=== PATIENT | female | born 1985 | race Caucasian/White ===

== ENCOUNTER → 2018-06-21 16:45 | Outpatient (CLI) | payer MEDICAID, SELFPAY ==
[2018-06-24 09:05] LABS: HPV Reflexed? NOT INDICATED
== END ==
PROVIDERS: Visit Provider Obstetrics & Gynecology
DX: Z12.4 Encounter for screening for malignant neoplasm of cervix (principal)
CPT/HCPCS: 88175; G0145

== ENCOUNTER → 2018-07-18 17:42 | Outpatient (CLI) | payer MEDICAID, SELFPAY ==
--- NOTE | 2018-07-18 17:44 | CT_ITS ---
STUDY: CT ABDOMEN AND PELVIS WITH CONTRAST REASON FOR EXAM: Female, 32 years old. Palpable right lower quadrant mass RADIATION DOSAGE (If Supplied By Facility): CTDIvol = ( 11.7 ) mGy, DLP = ( 693.73 ) mGycm TECHNIQUE: Transaxial images were obtained from the dome of the diaphragm to the symphysis pubis without oral contrast. 100 ml of Isovue 300 contrast was administered. Sagittal and coronal images were reconstructed. Individualized dose optimization techniques were used for this CT. COMPARISON: None. FINDINGS: The lung bases are clear. The liver is normal. No dilated intrahepatic biliary radicles. The gallbladder is normal with no calcifications within it. There is no pericholecystic fluid collection or streakiness The spleen is normal. The pancreas is normal. Both adrenals are normal. The kidneys are normal with no masses, calculi or hydronephrosis A large food debris in the stomach There is no bowel distention, acute appendicitis or diverticulitis. No constricting lesions are seen in large bowel. A large fecal debris in the rectum A 3.5 cm hematoma in the right lower rectus abdominis muscle and a 1.7 cm hematoma involving the left inferior rectus abdominis muscle and the adjacent subcutaneous tissue. No ventral hernia. There is no ascites or any free intraperitoneal air. No indication of epiploic appendagitis The vascular structures in the retroperitoneum are normal. There is no retrocrural, retroperitoneal or mesenteric adenopathy. The bones and joints are normal. The urinary bladder is normal.--The uterus is normal. There is no inguinal or pelvic adenopathy. There is no inguinal hernia. CT/Abdomen/Pelvis WITH Contrast IMPRESSION: A 3.5 cm hematoma within the right rectus abdominis muscle in its inferior end. A similar but smaller area of hematoma at the same level is seen on the left side. This measures 1.7 cm and involves both the rectus abdominis muscle in the adjacent subcutaneous tissue. A large fecal burden in the rectum. No acute appendicitis or diverticulitis Electronically Signed: Jose Luis Miller MD at 4:27 EDT Tel , Service support ,
== END ==
PROVIDERS: Referring Provider Surgery; Visit Provider Surgery
DX: R19.00 Intra-abdominal and pelvic swelling, mass and lump, unspecified site (principal)
CPT/HCPCS: 74177; Q9967

== ENCOUNTER 2018-12-13 15:20 | Inpatient (IN) | payer MEDICAID, SELFPAY ==
[2018-11-02 09:51] VITALS: BMI 32.8
[2018-11-14 13:19] VITALS: BMI 32.8
--- NOTE | 2018-12-12 20:53 | HP.PCM_ITS ---
History and Physical Date of Admission: 12/13/18 HISTORY OF PRESENT ILLNESS 33 year old woman presents with painful masses in her lower anterior abdominal wall with increased painful symptomatology over the past year. She first noticed these painful masses after a in the past. The painful symptomatology is exacerbated during her menstrual cycle. Patient is sexually active. An ultrasound was done which showed two subcutaneous lesions in the lower abdominal wall area, measuring 3.7 cm and 2.[address] Abdomen and Pelvis was done on 07/18/18 which showed a 3.5 cm hematoma within the right rectus abdominis muscle in its inferior end. A similar but smaller area of hematoma at the same level is seen on the left side. This measures 1.7 cm and involves both the rectus abdominis muscle in the adjacent subcutaneous tissue. No ventral hernia. There is no ascites or any free intraperitoneal air. Dr. Mina has been consulted for excision of these painful masses in the rectus abdominis muscles. Since her symptomatology is exacerbated with her menstrual cycle, he thinks these masses may represent endometriomas. At the time of excision, an undetermined amount of rectus abdominis muscle may be removed leading to an abdominal wall defect. I was asked to evaluate this patient for surgical options for abdominal wall reconstruction. PAST MEDICAL HISTORY Nausea Abdominal pain Anxiety and depression Asthma PAST SURGICAL HISTORY tonsillectomy tubal ligation unilateral oophorectomy section ALLERGIES No Known Allergies MEDICATIONS None. FAMILY HISTORY Father - Heart disease, Hypertension, Diabetes SOCIAL HISTORY Smoking Status: Current every day smoker second hand exposure: Yes alcohol intake: current alcohol intake frequency: a few times a month substance use type: does not use REVIEW OF SYSTEMS General - Denies fever, fatigue, and weight loss. Eyes - Denies cataracts and glaucoma. ENT - Denies nasal congestion and sore throat. Endocrine - Denies excessive thirst and urination. Skin - Denies suspicious lesions and skin cancer. Musculoskeletal - Denies joint pain, joint stiffness, weakness of muscles and joints, back pain, and arthritis. Neuro - Denies headaches. Cardiovascular - Denies chest pain, fatigue, and shortness of breath with exertion. Psych - Denies anxiety and depression. Respiratory - Denies chronic cough and shortness of breath. Patient is a smoker. Gastrointestinal - Has nausea. Denies vomiting, diarrhea, and constipation. Hematologic - Denies abnormal bruising and bleeding. Genitourinary - Denies hematuria and urinary frequency. PHYSICAL EXAMINATION General - Alert and Oriented. HEENT - PERRL. EOMI. Throat is clear. Neck - Supple and nontender. No cervical adenopathy. Lungs - Clear to auscultation. Heart - Regular rate and rhythm. Abdomen - Soft and nondistended. Has a horizontal pubic scar. There are palpable soft tissue masses in the lower anterior abdominal wall. Tender to palpation. The larger one is in the right lower abdominal wall area. Measures about 4 cm. There is a smaller one in the left lower abdominal wall area. Measures about 2 cm. No abdominal wall defects palpated at this time. Extremities - FROM. No axillary adenopathy. Radial pulses are palpable. Neuro - CN II-XII grossly intact. Psych - Normal mood and affect. ASSESSMENT 1. 4 cm painful endometrioma right lower anterior abdominal wall in rectus abdominis muscle. 2. 2 cm painful endometrioma left lower anterior abdominal wall in rectus abdominis muscle. 3. Planned ventral hernia after excision endometriomas rectus abdominis muscles. 4. Late effect contusion abdominal wall. 5. Smoker. PLAN CT reviewed. Discussed with the patient that after excision of these painful endometriomas, there may an abdominal wall defect that will need reconstruction. Depending on how much muscle and fascia is excised, will plan on abdominal wall reconstruction using components separation technique with myofascial advancement flaps. The use of acellular dermal matrix graft will be used as well in the reconstruction. Additional regional myofascial flaps may be needed as well, namely the TFL flap and/or the rectus femoris flap. Depending on the complexity of the abdominal wall reconstruction, I anticipate at least an overnight stay in the hospital but more likely a 2-4 day stay may be needed. She will have drains in for several days and be maintained on antibiotics until the drains are removed. She will wear an abdominal binder for 6 months and be on a 10 lb lifting restriction as well. Will coordinate with Dr. Mina's office the timing of the surgery. Patient was informed of the risks and complications of the procedure including alternatives to surgery. These were discussed with the patient personally. Patient voices understanding and wishes to proceed. Some of the risks and complications were included in a form from the [employer]. Encouraged patient to stop smoking as it may have deleterious effects on wound healing.
[2018-12-13] VITALS (11 sets, daily range): BP systolic 91–123; BP diastolic 42–85; PULSE 55–83; RESP 14–16; TEMP 36.4–37.1; O2SAT 93–98; BMI 33.2
--- NOTE | 2018-12-13 | IMM_PTH ---
PATIENT: KRISTINA VERONICA LOC: MS3 U#:[id number] AGE/SX: 33/F ROOM: IA318 RE12/13/[address]: Dr. Jan Soler MD : 1985 BED: 1 DIS: 12/14/2018 SPEC #: [id number] RECD: 12/14/18 13:49 STATUS: NATAN REQ #: [id number] KAYLEEN: 12/13/18 00:[address]: Jan Soler DEPT: IMMUNOHISTOCHEMISTRY RECD BY: Cyndee Soto ENTERED: 12/14/18 13:53 SP TYPE: IMMUNO OTHR DR: No Primary Care Phys Tissues: B - Abdominal wall, NOS Procedures: BCL-2 (add) CD138 (add) CD20 (add) CD45 (add) CD5 (add) CD79A (add) MACRO (add) Pankeratin (add) CD3 (initial) PHYSICIAN & INSTITUTION [place] [address] SPECIMEN INFORMATION: Tissue Source: B - Right rectus abdominis with lymph node, biopsy Clinical Info: Ventral hernia without obstruction or gangrene, subcutaneous nodule Specimen Number: [id number] B3 CPT code: 97401, 14298 x8 METHODOLOGY: Deparaffinized sections of prefer/formalin-fixed tissue or PAP/DQ stained slides are incubated with monoclonal/polyclonal antibodies/oligonucleotide probes. Localization is made via biotin free immunoperoxidase method. Appropriate controls are performed and reacted as expected. Results on target cell population are indicated in the following table: RESULTS: ANTIBODY / CLONE RESULT Block B3 CD3 (PS1) positive CD5 (SP10) positive CD20 (L26) positive CD45 (RP2/18) positive CD79a (11E3) negative CD138 (B-A38) negative BCL-2 (bcl-2/100/D5) negative AE1-3 (AE1/AE3/PCK26) negative Macro (HAM-56) negative These tests were developed and their performance characteristics determined by [facility]. They may not have been cleared or approved by the U.S. Food and Drug Administration. The FDA has determined that such clearance or approval is not necessary. INTERPRETATION: B. Right rectus abdominis with lymph node, biopsy: Consistent with reactive lymphoid tissue. AM:arnold 12/15/18
[2018-12-13] MEDS: Cefazolin 2 GM in 0.9% Normal Saline 100 ML IV (09:42)
--- NOTE | 2018-12-13 10:28 | MISC_PTH ---
PATIENT: KRISTINA VERONICA LOC: MS3 U#:[id number] AGE/SX: 33/F ROOM: FL318 RE12/13/[address]: Dr. Jna Soler MD : 1985 BED: 1 DIS: 12/14/2018 SPEC #: [id number] RECD: 12/13/18 10:34 STATUS: NATAN RELars #: [id number] KAYLEEN: 12/13/18 10:[address]: Jan Soler DEPT: SURGICAL PATHOLOGY RECD BY: Lupillo Worrell ENTERED: 12/13/18 13:00 SP TYPE: MISC OTHR DR: Winter Primary Care Phys Tissues: A - Abdominal wall, NOS B - Abdominal wall, NOS C - Abdominal wall, NOS Procedures: Frozen Section (charge) Frozen Section Add'l ([facility]) Surgery Specimen Level IV HEADER OPERATION: Excision endometriomas, rectus abdominis PRE-OP DIAGNOSIS: Ventral hernia without obstruction or gangrene, subcutaneous nodule TISSUE SUBMITTED: A - Left rectus abdominis, FS at 1024, B - Right rectus abdominis and lymph node, FS at 1035, C - Additional tissue on right rectus abdominis, FS at 1043, D - Additional tissue on right rectus abdominis, sent for permanent FROZEN SECTION DIAGNOSIS A. Left rectus abdominis: Consistent with endometriosis. B. Right rectus abdominis with lymph node: Consistent with endometriosis. Lymph node, reactive lymphoid hyperplasia. C. Additional tissue on right: Negative for endometriosis. SJ:arnold 12/13/18 B & C. Case has been reviewed in consultation with Dr. aHrman who concurs with the above diagnosis. IDC:AM MICROSCOPIC DIAGNOSIS A. Left rectus abdominis, biopsy: Extensive endometriosis. B. Right rectus abdominis, biopsy: Extensive endometriosis. Lymph node tissue with reactive change. Skin with underlying soft tissue containing focal dystrophic ossification. See comment. C. Additional tissue, right rectus abdominis, biopsy: Benign skeletal muscle fragment. See comment. D. Additional tissue, right rectus abdominis, biopsy: Benign muscular and fibrofatty tissue. See comment. AM:arnold 12/14/18 COMMENT B. Immunohistochemistry ([id number]) supports the above diagnosis. C & D. There is no evidence of endometriosis or malignancy. MICROSCOPIC DESCRIPTION Slides are reviewed. GROSS DESCRIPTION A - Received fresh for frozen section diagnosis labeled with the patient's name is a specimen designated left rectus abdominis. The specimen consists of a nodular piece of christie soft tissue measuring 4 x 3.5 x 2.5 cm. The specimen is inked and serially sectioned and reveals focally fibrous cut surfaces. A section is submitted for frozen section diagnosis. Emergency Medical Service Coordinator sections are submitted in five cassettes as follows: 1 - frozen section, 2-5 - more account executive sales representative sections. / AM: 12/13/18 B - Received fresh for frozen section diagnosis labeled with the patient's name is a specimen designated right rectus abdominis and lymph node. The specimen consists of a nodular piece of soft tissue measuring 8 x 4 x 3 cm. A piece of lymph node is also noted measuring 1.2 cm in greatest dimension. Two frozen sections are done, one from the nodular piece and the second one from the half of the lymph node. Serial sections of the largest piece reveals christie fibrous cut surfaces and focal area of punctate hemorrhage. Emergency Medical Service Coordinator sections are submitted in six cassettes as follows: 1 - frozen section, larger piece of tissue, 2 - frozen section, lymph node, 3 - rest of the lymph node, 4-6 - more sections of larger piece of tissue. / AM: 12/13/18 C - Received fresh for frozen section diagnosis labeled with the patient's name is a specimen designated additional tissue on right. The specimen consists of a piece of christie soft tissue measuring 1.5 x 1 x 0.5 cm. The specimen is bisected and submitted entirely for frozen section diagnosis in one cassette. / AM: 12/13/18 D - Received in fixative is one container labeled with the patient's name and designated additional tissue right rectus abdominis. The specimen consists of a piece of pink congested soft tissue measuring 3 x 1 x 0.5 cm. The specimen is bisected and submitted entirely in one cassette. / MORGAN:arnold 12/13/18 TC:5 CPT: 18572 x4, 97071 x3, 31211
--- NOTE | 2018-12-13 11:12 | PCM.OPRPT ---
Problem List (1) Endometrioma Status: Chronic Comment: lower anterior abdominal wall in rectus muscles Report of Operation Date of Procedure: 12/13/18 Pre-Operative Diagnosis: Endometriomas of lower rectus abdominis muscle Post-Operative Diagnosis: Same Surgery/Procedure Performed:: Excision of intramuscular endometriomas x2 electrical prospecting observer: Jan Soler Type of Anesthesia:: General Anesthesiologist: Duane Velazco Specimen's removed: 2 endometriomas from lower rectus abdominis muscle Estimated Blood Loss (mL): < 25 cc Description of Procedure: Patient was brought into the operating room. Under excellent general trach intubation the abdomen was sterilely prepped draped in usual fashion. Local was injected into an old Pfannenstiel incision and this was opened up. Plasma blade was used come down to the endometrioma. I started on the left lower rectus remove this 1 getting circumferentially around it with the plasma blade he only had to take a small amount of the fascia and almost no muscle at all on the left side I sent it for frozen section and it came back as an endometrioma. I then went to the right side using the plasma blade I got all around this this significantly went into the rectus abdominis muscle and we sacrificed a significant amount of the anterior fascia as well as the inferior aspect of the muscle itself. We had a perforating vessel of the inferior epigastrics that was sacrificed and I tied them off with a [id number] sutures of 0 Vicryl. A few other smaller perforators were clipped with medium ligaclips. I sent the larger one off it to came back as an endometrioma. Once this was completed we had good hemostasis Dr. Soler came in to do his myofascial coverage. - Admit VTE Documentation VTE Present on Admission: No VTE Mechan Device Prophylaxis: SCD's VTE Pharm Prophylaxis ordered?: No Reason prophylaxis not ordered:: Treatment Not Indicated
--- NOTE | 2018-12-13 11:16 | OP.PCM_ITS ---
Problem List (1) Endometrioma Status: Chronic Comment: lower anterior abdominal wall in rectus muscles Report of Operation Date of Procedure: 12/13/18 Pre-Operative Diagnosis: Endometriomas of lower rectus abdominis muscle Post-Operative Diagnosis: Same Surgery/Procedure Performed:: Excision of intramuscular endometriomas x2 field scout: Jan Soler Type of Anesthesia:: General Anesthesiologist: Duane Velazco Specimen's removed: 2 endometriomas from lower rectus abdominis muscle Estimated Blood Loss (mL): < 25 cc Description of Procedure: Patient was brought into the operating room. Under excellent general trach intubation the abdomen was sterilely prepped draped in usual fashion. Local was injected into an old Pfannenstiel incision and this was opened up. Plasma blade was used come down to the endometrioma. I started on the left lower rectus remove this 1 getting circumferentially around it with the plasma blade he only had to take a small amount of the fascia and almost no muscle at all on the left side I sent it for frozen section and it came back as an endometrioma. I then went to the right side using the plasma blade I got all around this this significantly went into the rectus abdominis muscle and we sacrificed a significant amount of the anterior fascia as well as the inferior aspect of the muscle itself. We had a perforating vessel of the inferior epigastrics that was sacrificed and I tied them off with a [id number] sutures of 0 Vicryl. A few other smaller perforators were clipped with medium ligaclips. I sent the larger one off it to came back as an endometrioma. Once this was completed we had good hemostasis Dr. Soler came in to do his myofascial coverage. - Admit VTE Documentation VTE Present on Admission: No VTE Mechan Device Prophylaxis: SCD's VTE Pharm Prophylaxis ordered?: No Reason prophylaxis not ordered:: Treatment Not Indicated
--- NOTE | 2018-12-13 13:14 | OP.PCM_ITS ---
Report of Operation Date of Procedure: 12/13/18 Pre-Operative Diagnosis: 1. 4 cm painful endometrioma right lower anterior abdominal wall in rectus abdominis muscle. 2. 2 cm painful endometrioma left lower anterior abdominal wall in rectus abdominis muscle. 3. Planned ventral hernia after excision endometriomas rectus abdominis muscles. 4. Late effect contusion abdominal wall. 5. Smoker. Post-Operative Diagnosis: Same. Surgery/Procedure Performed:: Complex abdominal wall reconstruction with repair of bilateral rectus muscular fascial ventral hernias with components separation technique using bilateral external oblique myofascial advancement flaps and plac ement Strattice reconstructive acellular dermal tissue matrix graft (200 cm2). Description of Surgical Findings:: 33 year old woman presents with painful masses in her lower anterior abdominal wall with increased painful symptomatology over the past year. She first noticed these painful masses after a in the past. The painful symptomatology is exacerbated during her menstrual cycle. Patient is sexually active. An ultrasound was done which showed two subcutaneous lesions in the lower abdominal wall area, measuring 3.7 cm and 2.[address] Abdomen and Pelvis was done on 07/18/18 which showed a 3.5 cm hematoma within the right rectus abdominis muscle in its inferior end. A similar but smaller area of hematoma at the same level is seen on the left side. This measures 1.7 cm and involves both the rectus abdominis muscle in the adjacent subcutaneous tissue. No ventral hernia. There is no ascites or any free intraperitoneal air. Dr. Mina has been consulted for excision of these painful masses in the rectus abdominis muscles. Since her symptomatology is exacerbated with her menstrual cycle, he thinks these masses may represent endometriomas. At the time of excision, an undetermined amount of rectus abdominis muscle may be removed leading to an abdominal wall defect. I was asked to evaluate this patient for surgical options for abdominal wall reconstruction. Patient was informed of the risks and complications of the procedure including alternatives to surgery. These were discussed with the patient personally. Patient voices understanding and wishes to proceed. Some of the risks and complications were included in a form from the [employer] [place] [employer]. Encouraged patient to stop smoking as it may have deleterious effects on wound healing. IV Fluids - 1800 ml. Urine Output - 525 ml. I used Strattice Reconstructive Acellular Dermal Tissue Matrix Graft, (10 x 20 cm, Firm). Reference Number - [id number]. Lot Number - [id number]. Expiration - October 10, 2020. I used Nae absorbable hemostat, (I used 2 vials). Reference Number - [id number]. Lot Number - [id number]. Expiration - September 07, 2023. prescription clerk: Yann Mina prescription clerk: Carmen Rivas. Type of Anesthesia:: General Specimen's removed: 1. Endometrioma from left rectus muscle and fascia to Pathology as a frozen section. 2. Endometrioma from right rectus muscle and fascia to Pathology as a frozen section. Drains: Wayne x2. Estimated Blood Loss (mL): 50 ml. Fluids Replaced: 2325 ml (IV Fluids 1800 ml, Urine Output 525 ml). Description of Procedure: Patient was taken to OR in supine position and was placed under general anesthesia. The abdominal wall and bilateral thighs were prepped and draped in the usual fashion. SCD's were placed for DVT prophylaxis. Perioperative antibiotics were given intravenously. Dnih catheter was placed. Using xylocaine with epinephrine, the horizontal pubic scar was infiltrated. After waiting 5 minutes for the anesthetic to take effect, Dr. Mina proceeded with incision through the previous scar down into the subcutaneous tissue. He removed two endometriomas one in each rectus muscle that he will dictate separately. The specimens were sent to Pathology as a frozen section to confirm they were endometriomas. Once they were removed, I then proceed with the complex abdominal wall reconstruction. I dissected down to the abdominal wall fascia up to the level of the umbilicus. This led to a long abdominal wall skin flap that was reduced by excising the distal end of the flap as a horizontal elliptical excision which will aid in easier retraction of the tissue and help in the wound closure. Some anterior rectus fascia and minimal rectus muscle was taken from the left side endometrioma. Ventral hernia fascial defect was 4 x 1.5 cm on the left. The endometrioma on the right was much larger and involved more of the muscle and fascia. It extended to the posterior rectus sheath. Ventral hernia fascial defect was 6 x 3 cm on the right. I started the complex abdominal wall reconstruction using a components separation technique. I made longitudinal relaxing incisions in the external oblique on the right and also on the left. I was able to close the ventral hernia fascial defects primarily by advancing the myofascial flaps toward the midline with 0-Surgilon simple running sutures. Once the midline fascial repairs were secure, this left weakness in the lateral external oblique areas. I mobilized the lateral external oblique myofascial flap at the level of the internal obliques and was able to advance the myofascial flaps bilaterally to the lateral rectus sheath fascial edge. I secured this myofascial flap closure bilaterally with 0-Surgilon figure of eight interrupted sutures. This gave us internal tightening of the abdominal wall with more of the tension placed laterally and not in the midline area. After the fascial repair, there appeared to be a secure closure with no weaknesses in the abdominal wall. Therefore there was no need at this time to pursue a regional thigh fascial flap to bring in additional fascial tissue for the closure. I wanted to re-enforce the closure with a piece of Strattice reconstructive tissue matrix graft, firm and thick, and measuring 10 x 20 cm or 200 cm2. After placing the Strattice in saline for a couple of minutes, I placed the Strattice on the abdominal wall repair from the pubic area to the umbilicus vertically and from the external oblique areas horizontally. The Strattice was secured to the abdominal wall fascia with 2-0 Novafil simple interrupted sutures. The Strattice was placed on some stretch. Good contouring was noted after placement of the Strattice with no areas of weakness noted. The wound was irrigated with saline. Hemostasis was obtained with electrocautery. I placed 2 Wayne drains, size 15, through separate stab incisions inferiorly and laterally and secure to the skin with 3-0 Nylon suture. I sprayed Nae absorbable hemostat into the abdominal wall wound area to help minimize seroma formation. I used 2 vials of Nae. I then closed the abdominal wall wound in multiple layers with 2-0 Vicryl figure of eight interrupted sutures for the Sathya's fascial layer. The deep dermis and subcutaneous tissue was approximated with 2-0 Vicryl and 3-0 Monocryl interrupted sutures. The skin was approximated with 3-0 V lock unidirectional barbed running subcuticular suture. This was followed by Histoacryl skin tissue adhesive. Dry Kerlix gauze was applied followed by a compression abdominal wall binder. Patient tolerated the procedure well and was sent to PACU in satisfactory condition. Patient will be sent upstairs for continued postop care. Will maintain on clear liquids until tomorrow. She can be discharged once she is tolerating po analgesia. Grafts/Implants Used: Strattice Reconstructive Tissue Matrix Graft. - Complications None. - Admit VTE Documentation VTE Present on Admission: No VTE Mechan Device Prophylaxis: SCD's VTE Pharm Prophylaxis ordered?: Yes Code Visit Surgery Charges CPT - 90036 ICD-10 - K43.9, N80.9, S30.1xxS, F17.200 12825 K43.9, N80.9, S30.1xxS, F17.200 38950 K43.9, N80.9, S30.1xxS, F17.200 [id number] K43.9, N80.9, S30.1xxS, F17.200 70896 K43.9, N80.9, S30.1xxS, F17.200
[2018-12-13] MEDS: Cefazolin 1 GM/50 ML BAG IV ×2 (17:46→21:06)
[2018-12-13] MEDS: HYDROmorphone 1 MG/ML Syringe IV (17:50)
[2018-12-13] MEDS: Ondansetron 4 MG/2 ML Vial IV (18:02)
[2018-12-13] MEDS: Docusate Sodium 100 MG Capsule PO (21:06)
[2018-12-14] MEDS: Lactated Ringers 1,000 ML 60 ML IV (00:09)
[2018-12-14] MEDS: Ondansetron 4 MG/2 ML Vial IV ×2 (00:09→06:18)
[2018-12-14 00:20] VITALS: BP 97/51; PULSE 53; RESP 16; TEMP 36.9; O2SAT 98
[2018-12-14 06:10] LABS: Hematocrit 38.7 % (37-47); Hemoglobin 12.4 g/dl (12.0-15.0); Mean Corpuscular Hgb 29.2 pg (27.0-32.0); Mean Corpuscular Volume 91.3 fL (81-99); Mean Platelet Vol. 10.9 fl (6.2-12.0); Platelet Count 197 K/mm3 (150-450); RBC Distribution Width CV 13.6 % (11.6-14.6); RBC Distribution Width SD 45.2 fl (35.1-43.9); Red Blood Count 4.24 M/mm3 (4.2-5.4); White Blood Count 11.5 K/mm3 (4.4-11.0)
[2018-12-14 06:11] LABS: Scan Indicated on CBC? Y/N NO
[2018-12-14] MEDS: Enoxaparin 30 MG/0.3 ML Syringe SC (06:18)
[2018-12-14] MEDS: Cefazolin 1 GM/50 ML BAG IV ×2 (06:18→15:07)
[2018-12-14 06:20] VITALS: BP 115/59; PULSE 79; RESP 16; TEMP 37; O2SAT 96
[2018-12-14 06:32] LABS: Anion Gap 8 (5-15); BUN 11 mg/dL (7-18); BUN/Creat Ratio 16.8 RATIO (10-20); Chloride 108 mmol/L (98-107); Creatinine, Serum 0.65 mg/dL (0.55-1.02); EST Glomerular Filtration Rate 110 mL/min (>60); Est Glom Filt Rate - Afr Amer 133 mL/min (>60); Estimated Creatinine Clearance 100.88 ml/min; Glucose 87 mg/dL (74-106); Potassium 3.7 mmol/L (3.5-5.1); Prealbumin 17.2 mg/dL (20.0-40.0); Sodium Level 141 mmol/L (136-145)
[2018-12-14 07:53] VITALS: BP 96/51; PULSE 85; RESP 16; TEMP 37.2; O2SAT 95
[2018-12-14 08:01] VITALS: PULSE 87; RESP 16
--- NOTE | 2018-12-14 09:04 | PCM.PN.SRG ---
Subjective: Postop #1 Patient has some incisional pain. No nausea last night. Tolerating liquids. - Physical Exam General: Alert, Oriented x3 HEENT: PERRLA, EOMI Oral: Moist Mucosa Neck: Supple Abdomen: Soft, Non-Distended Skin: - - abdominal dressing is dry and intact. Neurological: Cranial nerves II-XII grossly intact Psych/Mental Status: Normal Affect, Appropriate Vital Signs Temp Pulse Resp BP Pulse Ox 98.9 F 87 16 96/51 L 95 12/14/18 07:53 12/14/18 08:01 12/14/18 08:01 12/14/18 07:53 12/14/18 07:53 Oxygen Flow Rate (L/min) 2 Oxygen Delivery Method Room Air Weight: 187 lb 9.814 oz Body Mass Index (BMI) 33.2 Intake and Output for Last 24 Hours 12/12/18 12/13/18 12/14/18 23:59 23:59 23:59 Intake Total 2720 / 2720 782 / 782 Output Total 1000 / 1000 925 / 925 Balance 1720 / 1720 -143 / -143 Drainage 25 ml yesterday. Laboratory Tests Past 24 Hrs 12/14/18 12/14/18 05:34 05:34 WBC 11.5 H RBC 4.24 Hgb 12.4 Hct 38.7 MCV 91.3 MCH 29.2 MCHC 32.0 RDW 13.6 RDW Differential 45.2 H Plt Count 197 MPV 10.9 Sodium 141 Potassium 3.7 Chloride 108 H Carbon Dioxide 25.0 Anion Gap 8 BUN 11 Creatinine 0.65 Estim Creat Clear Calc 100.88 Est GFR (MDRD) Af Amer 133 Est GFR (MDRD) Non-Af 110 BUN/Creatinine Ratio 16.8 Glucose 87 Calcium 8.0 L Prealbumin 17.2 L Medical Necessity - Tobacco Use Smoking Status: Current every day smoker Assessment/Plan All Active Problems (Last Reviewed 11/14/18 @ 13:18 by Myrtle Nevarez) Ventral hernia (Acute) Hx of tonsillectomy (Acute) Hx of tubal ligation (Acute) Hx of unilateral oophorectomy (Acute) Hx of section (Acute) Nausea (Acute) Abdominal pain (Acute) 1. 4 cm painful endometrioma right lower anterior abdominal wall in rectus abdominis muscle. 2. 2 cm painful endometrioma left lower anterior abdominal wall in rectus abdominis muscle. 3. Planned ventral hernia after excision endometriomas rectus abdominis muscles. 4. Late effect contusion abdominal wall. 5. Smoker. 6. s/p complex abdominal wall reconstruction with repair of bilateral rectus muscular fascial ventral hernias with components separation technique using bilateral external oblique myofascial advancement flaps and placement Strattice reconstructive acellular dermal tissue matrix graft (200 cm2). Patient has incisional pain. No nausea last night. Will change the Zofran to prn. Tolerated clear liquids. Will advance diet. Will send home on antibiotics until the drains are removed. Continue abdominal binder for 6 months. Will have lifting restriction as well (10 lbs). Keep head elevated. Dinh removed today. She is voiding without difficulty. Ambulate with assist. Discharge home later today. Will remove drains in the office. Wrote script for Cefadroxil for 14 days. Wrote scripts for Percocet for pain (60 tabs) and for Valium for spasm (30 tabs). Wrote scripts for Phenergan for nausea (30 tabs) and a refill and for Colace for constipation (60 tabs). Followup office one week. Encouraged patient to stop smoking as it may have deleterious effects on wound healing.
--- NOTE | 2018-12-14 09:27 | PCM.PN.SRG ---
Subjective: PAtient evaluated resting comfortably in bed. She rates her pain a 5 out of 10. She notes its tolerable. She denies nausea. She is tolerating liquids. - Physical Exam General: Alert, Oriented x3, Cooperative Abdomen: Soft, Hypoactive Bowel Sounds, Tender - generalized, - - DYAN drains intact with dark bloody fluid within the bulb. Dressing intact. Binder placed back on. Vital Signs Temp Pulse Resp BP Pulse Ox 98.9 F 87 16 96/51 L 95 12/14/18 07:53 12/14/18 08:01 12/14/18 08:01 12/14/18 07:53 12/14/18 07:53 Oxygen Flow Rate (L/min) 2 Oxygen Delivery Method Room Air Weight: 187 lb 9.814 oz Body Mass Index (BMI) 33.2 Intake and Output for Last 24 Hours 12/12/18 12/13/18 12/14/18 23:59 23:59 23:59 Intake Total 2720 / 2720 782 / 782 Output Total 1000 / 1000 925 / 925 Balance 1720 / 1720 -143 / -143 Laboratory Tests Past 24 Hrs 12/14/18 12/14/18 05:34 05:34 WBC 11.5 H RBC 4.24 Hgb 12.4 Hct 38.7 MCV 91.3 MCH 29.2 MCHC 32.0 RDW 13.6 RDW Differential 45.2 H Plt Count 197 MPV 10.9 Sodium 141 Potassium 3.7 Chloride 108 H Carbon Dioxide 25.0 Anion Gap 8 BUN 11 Creatinine 0.65 Estim Creat Clear Calc 100.88 Est GFR (MDRD) Af Amer 133 Est GFR (MDRD) Non-Af 110 BUN/Creatinine Ratio 16.8 Glucose 87 Calcium 8.0 L Prealbumin 17.2 L Medical Necessity - Tobacco Use Smoking Status: Current every day smoker Assessment/Plan All Active Problems (Last Reviewed 11/14/18 @ 13:18 by Myrtle Nevarez) Ventral hernia (Acute) Hx of tonsillectomy (Acute) Hx of tubal ligation (Acute) Hx of unilateral oophorectomy (Acute) Hx of section (Acute) Nausea (Acute) Abdominal pain (Acute) I am following this patient in conjunction with Dr. Mina S/p removal of painful endometriomas x 2 of the abdomen followed by abdominal wall reconstruction by Dr. Soler Patient recovering well Denies nausea Will follow-up with Dr. Soler Discharge once pain controlled Discussed with Dr. Mina We will continue to monitor this patient Code Visit Inpatient E&M: 88295 Subs Hosp L1 - POST-OP/NO CHARGE
[2018-12-14] MEDS: Docusate Sodium 100 MG Capsule PO (10:33)
[2018-12-14 12:41] VITALS: BP 105/53; PULSE 87; RESP 15; TEMP 37.6; O2SAT 95
--- NOTE | 2018-12-14 14:28 | NURSING ---
[facility] student nurse's charting reviewed for educational learning purposes by mulu alvares.
--- NOTE | 2018-12-14 15:59 | CASEMGMT ---
RN CM Face to Face with patient for initial transition planning/care coordination assessment. RN CM introduced self and role at [facility]. Patient lying in bed, alert and oriented. Patient willing to participate in assessment and is able to answer all questions appropriately. Care providers, pharmacy, and demographics verified. Patient wishes to discharge home, denies need for home health at this time, states mother is a nurse and can help at home. Patient states she has no further needs or concerns at this time. CM to follow for discharge planning needs that may arise. PCP: No PCP, CM will provide list of area PCPs Specialists: [employer]; [facility] surgeon [facility]erred [facility]acy: [facility] Insurance: [employer] Prescription Benefit:Yes Living Will/HPOA: None LNOK: two 8 yo twin, parents Living Arrangements: Patient lives with children in a townhouse with bed and bath on [address]. Patient states she was independent at home. Transportation: self/parents DME/HHC: Patient denies any DME at home. Denies previous HHC. Patient states that mother is a nurse and is able to help with care. Disposition Plan: Patient to discharge home with family support and follow-up plans in place. Alana COHEN, RN, CM
--- NOTE | 2018-12-14 16:08 | PCM.DC ---
You will use the following diet at home:: No restrictions Discharge Activity: May Not Drive, May Not Shower - until the drains are removed., - - keep head elevated. no heavy lifting. wear abdominal binder. May shower in (days): 14 - after drains are removed. May resume sexual activity in: 10-14 days Weight Bearing Status: Weight bearing as tolerated Lifting Restrictions: 10 lbs. Keep extremity elevated above heart level: - - elevate head. Call your doctor if your incision/area has: Continuous Slow Oozing, Sudden Increased Bleeding, Increased Pain/ Swelling, Increased Redness, Foul Smelling Discharge, Swelling at the incision site Call your doctor if you observe: Fever of 101 or Higher, Coldness, Increased Pain, Shortness of breath, Chest pain, Calf discomfort, Uncontrolled pain Suture Line Care: - - dry dressings daily. Change Dressing in (Days):: 1 - dry dressings daily followed by abdominal wall binder. Cleanse incision/area with: - - may get incision wet in the shower after drains are removed. Drain: Suction - urvashi drain x2 to bulb suction. empty and record output daily. Allergies/Adverse Reactions: Allergies No Known Allergies Allergy (Verified 12/06/18 11:02) Medications to take at Discharge Cefadroxil [Duricef] 500 mg PO BID #28 cap 12/14/18 Diazepam [Valium] 5 mg PO 4X/DAY PRN PRN #30 tab 12/14/18 Docusate Sodium [Colace] 100 mg PO BID #60 cap 12/14/18 Oxycodone HCl/Acetaminophen [Percocet 5/325] 1 - 2 tab PO 4X/DAY PRN PRN 7 Days #60 tab 12/14/18 proMETHazine tablet [Phenergan tablet] 25 mg PO 4X/DAY PRN PRN #30 tab 12/14/18 The following prescriptions were given: Diazepam [Valium] 5 mg PO 4X/DAY PRN PRN #30 tab PRN Reason: Spasms Oxycodone HCl/Acetaminophen [Percocet 5/325] 1 - 2 tab PO 4X/DAY PRN PRN 7 Days #60 tab PRN Reason: Pain proMETHazine tablet [Phenergan tablet] 25 mg PO 4X/DAY PRN PRN #30 tab PRN Reason: NAUSEA/VOMITING Cefadroxil [Duricef] 500 mg PO BID #28 cap Docusate Sodium [Colace] 100 mg PO BID #60 cap Primary Care Physician: Care Physician,No Primary [Primary Care Provider] - Test Results: Test results from this visit will be discussed in further detail at your follow-up appointment, if applicable. Please Follow Up With: Jan Soler MD When: one week. call [phone] for appt. Please Follow Up With: Yann Mina MD When: one week. call [phone] for appt to discuss path report. Proposed Discharge Date: 12/14/18
--- NOTE | 2018-12-14 16:12 | DCINST_ITS ---
You will use the following diet at home:: No restrictions Discharge Activity: May Not Drive, May Not Shower - until the drains are remove d., - - keep head elevated. no heavy lifting. wear abdominal binder. May shower in (days): 14 - after drains are removed. May resume sexual activity in: 10-14 days Weight Bearing Status: Weight bearing as tolerated Lifting Restrictions: 10 lbs. Keep extremity elevated above heart level: - - elevate head. Call your doctor if your incision/area has: Continuous Slow Oozing, Sudden Increased Bleeding, Increased Pain/ Swelling, Increased Redness, Foul Smelling Discharge, Swelling at the incision site Call your doctor if you observe: Fever of 101 or Higher, Coldness, Increased Pain, Shortness of breath, Chest pain, Calf discomfort, Uncontrolled pain Suture Line Care: - - dry dressings daily. Change Dressing in (Days):: 1 - dry dressings daily followed by abdominal wall b abel. Cleanse incision/area with: - - may get incision wet in the shower after drains are removed. Drain: Suction - urvashi drain x2 to bulb suction. empty and record output daily. Allergies/Adverse Reactions: Allergies No Known Allergies Allergy (Verified 12/06/18 11:02) Medications to take at Discharge Cefadroxil [Duricef] 500 mg PO BID #28 cap 12/14/18 Diazepam [Valium] 5 mg PO 4X/DAY PRN PRN #30 tab 12/14/18 Docusate Sodium [Colace] 100 mg PO BID #60 cap 12/14/18 Oxycodone HCl/Acetaminophen [Percocet 5/325] 1 - 2 tab PO 4X/DAY PRN PRN 7 Days #60 tab 12/14/18 proMETHazine tablet [Phenergan tablet] 25 mg PO 4X/DAY PRN PRN #30 tab 12/14/18 The following prescriptions were given: Diazepam [Valium] 5 mg PO 4X/DAY PRN PRN #30 tab PRN Reason: Spasms Oxycodone HCl/Acetaminophen [Percocet 5/325] 1 - 2 tab PO 4X/DAY PRN PRN 7 Days #60 tab PRN Reason: Pain proMETHazine tablet [Phenergan tablet] 25 mg PO 4X/DAY PRN PRN #30 tab PRN Reason: NAUSEA/VOMITING Cefadroxil [Duricef] 500 mg PO BID #28 cap Docusate Sodium [Colace] 100 mg PO BID #60 cap Primary Care Physician: Care Physician,No Primary [Primary Care Provider] - Test Results: Test results from this visit will be discussed in further detail at your follow- up appointment, if applicable. Please Follow Up With: Jan Soler MD When: one week. call [phone] for appt. Please Follow Up With: Yann Mina MD When: one week. call [phone] for appt to discuss path report. Proposed Discharge Date: 12/14/18
[2018-12-14 17:10] VITALS: BP 117/72; PULSE 83; RESP 16; TEMP 37.5; O2SAT 94
== END 2018-12-14 17:36 | disposition home or self-care (01) | DRG 951 ==
LOC: SDC 16:27 → MS3 12-14 06:45
PROVIDERS: Surgery; Admitting Provider Surgery; Referring Provider Surgery; Visit Provider Surgery
PROC: 0KBL0ZZ Excision of Left Abdomen Muscle, Open Approach (ICD-10-PCS; principal; 2018-12-13 08:15)
PROC: 0KX Muscles, Transfer (ICD-10-PCS; 2018-12-13 08:15)
DX: N80.8 Other endometriosis (principal); F17.200 Nicotine dependence, unspecified, uncomplicated
CPT/HCPCS: 36415; 80048; 84134; 85027; 88305; 88331; 88332; 88341; 88342; J7120; J2405